=== PATIENT | female | born 1950 ===

== ENCOUNTER 2016-06-14 13:23 | Outpatient (CLI) | payer OTHER ==
[2016-06-14 17:40] LABS: Free T3 2.38 pg/mL (1.71-3.71)
[2016-06-14 19:53] LABS: Free T4 (Free Thyroxine) 1.09 ng/dL (0.70-1.48); Thyroid Stimulating Hormone 0.0921 uIU/mL (0.35-4.94)
== END 2016-06-14 13:24 | disposition home or self-care (01) ==
LOC: LABLEX 13:23
PROVIDERS: ATTEND Family Medicine
DX: E03.9 Hypothyroidism, unspecified (principal)
CPT/HCPCS: 84439; 84443; 84481

== ENCOUNTER 2016-10-24 10:45 | Outpatient (CLI) | payer OTHER ==
[2016-10-24 16:50] LABS: Free T4 (Free Thyroxine) 0.69 ng/dL (0.70-1.48)
== END 2016-10-24 10:46 | disposition home or self-care (01) ==
LOC: LABLEX 10:45
PROVIDERS: ATTEND Family Medicine
DX: E03.9 Hypothyroidism, unspecified (principal)
CPT/HCPCS: 84439; 84443